=== PATIENT | female | born 1955 | race African-American/Black ===

== ENCOUNTER 2018-10-10 12:52 | Emergency (ER) | payer OTHER ==
[~2018-10-10] VITALS: Ht 162.6 cm; Wt 59.9 kg
[2018-10-10 13:59] LABS: AMP/METHAMP Negative (Negative); BARBITURATES Negative (Negative); BENZODIAZEPINES Negative (Negative); COCAINE Negative (Negative); METHADONE Negative (Negative); OPIATES Negative (Negative); PCP Negative (Negative)
[2018-10-10 14:25] VITALS: BP 144/82
--- NOTE | 2018-10-11 07:22 | EKG ---
[place] [address] [facility] [address] ELECTROCARDIOGRAM REPORT Name: PAYAMZANDER D [id number] ������������������ Admission: 10/10/18 ������������������ Attend Phys: Discharge: 10/10/18 ������������������ Date of : 51 Report #: [id number] ����������������������������������������������������������������� [id number] THIS REPORT FOR: //name// [facility] ED Test Date: 2018-10-10 Test Time: 13:46:19 Pat Name: ZANDER HARE Department: Room: Gender: F [employer]e [employer]: : 1955 Requested By: Stephanie Figueroa Order Number: [id number] MD: Tree Parikh Measurements Intervals [place] Rate: 89 P: 81 [place]: 157 QRS: 36 QRSD: 81 T: 45 QT: 335 QTc: 408 Interpretive Statements Sinus rhythm No significant abnormality No previous ECG available for comparison Electronically Signed On 10-11-2018 7:22:45 CDT by Tree Parikh [email or web address] ��������������������������������������������� <ELECTRONICALLY SIGNED> ���������������������������������������� By: Tree Parikh MD, [facility] ��������������������������������������������� 10/11/18 0722 [id number] Tree Parikh MD, FACC /EPI
== END 2018-10-10 14:25 | disposition home or self-care (01) ==
LOC: ER 12:52
PROVIDERS: Physician Assistant
DX: R00.0 Tachycardia, unspecified (principal); R42 Dizziness and giddiness; T40.7X5A Adverse effect of cannabis (derivatives), initial encounter; I10 Essential (primary) hypertension; Y92.89 Other specified places as the place of occurrence of the external cause